=== PATIENT | male | born 1985 | race Caucasian/White ===

== ENCOUNTER 2018-10-11 16:43 | Emergency (ER) | payer SELFPAY | END 2018-10-11 17:28 | disposition left against medical advice (07) | LOC: ER 16:43 | DX: R04.0 Epistaxis (principal); Z53.21 Procedure and treatment not carried out due to patient leaving prior to being seen by health care provider ==

== ENCOUNTER → 2018-12-19 | Outpatient (CLI) | payer OTHER ==
[~2018-12-19] MED LIST: HYDR-2763 PO; HYDR-3164 PO; KETO10TA PO; SUMA100T4 PO; TAMS0.4C97 PO; TRAM50TA PO
--- NOTE | 2018-12-19 12:00 | RAD ---
KUB History: Left ureteral calculus Comparison: None. Findings: Single supine AP view of abdomen is submitted. There are 2 calculi in the left pelvis otherwise difficult to characterize location. No other calculus is identified. Bowel is not dilated. Impression: 1. There are 2 calculi in the left pelvis otherwise cannot characterize if in ureter or phleboliths. Electronically signed by: Holden Martinez MD (12/19/2018 11:57 AM) [id number]
== END | disposition home or self-care (01) ==
LOC: RAD 10:47
PROVIDERS: ATTEND Urology
DX: N20.1 Calculus of ureter (principal)
CPT/HCPCS: 74018

== ENCOUNTER 2018-12-21 12:49 | Day surgery (SDC) | payer OTHER ==
[~2018-12-21] VITALS: Ht 167.6 cm; Wt 122.0 kg
[~2018-12-21 12:49] MED LIST changes: -HYDR-2763 PO; -HYDR-3164 PO; +HYDROmorphone 2 MG/ML VIAL IV PRN; +IOHEXOL 300 MG/ML 50 ML VIAL. ONE; +IV RINGERS,LACTATED 1000ML 1,000 ML IV SCH; -KETO10TA PO; +LIDOCAINE 2% JELLY 6ML IN APPLICATOR. ONE; +MORPHINE SULFATE 2 MG/ML VIAL. IV PRN; +ONDANSETRON PF 4 MG/2 ML VIAL. IV PRN; +PROCHLORPERAZINE 10 MG/2 ML VIAL. IV PRN; -SUMA100T4 PO; -TAMS0.4C97 PO; -TRAM50TA PO; +fentaNYL PF VIAL 100 MCG/2 ML VIAL IV PRN
[2018-12-21] MEDS ORDERED: ceFAZolin 2GM PREMIX 2 GM/50 ML BAG IV ONE (13:00)
[2018-12-21] MEDS ORDERED: TRAM50TA PO (13:08)
[2018-12-21] MEDS ORDERED: HYDR-2763 PO (13:13)
[2018-12-21] MEDS ORDERED: SUMA100T4 PO (13:13)
[2018-12-21] MEDS ORDERED: DEXAMETHASONE SOD PHOS 4 MG/ML VIAL ONE ×2 (13:41)
[2018-12-21] MEDS ORDERED: PROPOFOL 20 ML IV ONE (13:41)
[2018-12-21] MEDS ORDERED: LIDOCAINE 2% PF 5 ML VIAL. ONE (13:41)
[2018-12-21] MEDS ORDERED: ONDANSETRON PF 4 MG/2 ML VIAL. ONE (13:41)
[2018-12-21] MEDS ORDERED: FAMOTIDINE 20 MG/2 ML VIAL ONE (13:41)
[2018-12-21] MEDS ORDERED: fentaNYL PF VIAL 100 MCG/2 ML VIAL ONE (13:43)
[2018-12-21] MEDS ORDERED: SUCCINYLCHOLINE 200 MG/10 ML VIAL. ONE (13:43)
[2018-12-21] MEDS ORDERED: ceFAZolin SODIUM 1 GM VIAL ONE (14:41)
[2018-12-21] MEDS ORDERED: 0.9 % SODIUM CHLORIDE 20 ML VIAL. IJ ONE (14:41)
[2018-12-21] MEDS ORDERED: GLYCOPYRROLATE 1 MG/5 ML VIAL. ONE (14:45)
[2018-12-21] MEDS ORDERED: DESFLURANE 31 TO 60 MINUTES IH ONE (15:00)
--- NOTE | 2018-12-21 15:12 | PDOC4 ---
OPERATIVE NOTE Date: Date: Dec 21, 2018 Pre-Op Diagnosis: left distal stone Post-Op Diagnosis: left uvj stone Procedure Performed: cysto, left urs w stone removal Surgeon: Anesthesia Type: ga Blood Loss: 0ml Specimans Obtained: stone Findings: left uvj stone Complications: none evident Operative Note: Prepped and draped sterilely. Time out, scd attached, time out performed, ab was administered. 21fr rigid scope was inserted in bladder. Mild wide caliber bulbar USD, dilated w scope. Entry into bladder showed stone crowing at left UVJ. Basket was used to extract stone. Distal ureteroscopy showed no residual stones. Bladder was emptied, scope removed, patient was awakened. KAREN MATTHEW MD Dec 21, 2018 15:12
--- NOTE | 2018-12-21 15:14 | DISCH ---
DISCHARGE INSTRUCTIONS Condition on Discharge Condition on Discharge: Stable Activity After Discharge Activity Instructions for Disc: No restrictions Diet after Discharge Diet after Discharge: Regular Contacting the DRMaria Guadalupe after DC Call your doctor for: Concerns you may have Follow-Up Follow up with: in 2 weeks KAREN MATTHEW MD Dec 21, 2018 15:14
[2018-12-21] MEDS ORDERED: KETOROLAC 30 MG/ML VIAL. IV ONE (15:30)
[2018-12-21] MEDS ORDERED: HYDR-3164 PO (15:52)
[2018-12-21] MEDS ORDERED: KETO10TA PO (15:54)
[2018-12-21] MEDS ORDERED: TAMS0.4C97 PO (15:54)
[2018-12-21 16:20] VITALS: BP 152/80
[2018-12-28 07:23] LABS: STONE WEIGHT 29.9 mg (.)
== END 2018-12-21 16:35 | disposition home or self-care (01) ==
LOC: SURG 12:49
PROVIDERS: ATTEND Urology
DX: N20.1 Calculus of ureter (principal)
CPT/HCPCS: 36415; 52352; 76000; 82365; A7015; C1769; J0330; J0690; J0696; J1100; J1885; J2001; J2405; J2704; J3010; J3490; J7120; Q9967